=== PATIENT | female | born 1995 | race American Indian/Alaskan Native ===

== ENCOUNTER 2018-08-06 18:43 | Emergency (ER) | payer SELFPAY ==
[2018-08-06 18:50] VITALS: BP 119/60
--- NOTE | 2018-08-06 18:51 | Emergency Department Report ---
Blank Doc - Documentation Documentation: This is a 22-year-old female that presents with sore throat, frontal headache, and body aches. Deneis any cough. This initial assessment/diagnostic orders/clinical plan/treatment(s) is/are subject to change based on patient's health status, clinical progression and re-assessment by fellow clinical providers in the ED. Further treatment and workup at subsequent clinical providers discretion. Patient/guardians urged not to elope from the ED as their condition may be serious if not clinically assessed and managed. Initial orders include: 1- Patient sent to [facility] for further evaluation and treatment 2- strep swab
--- NOTE | 2018-08-06 20:58 | Emergency Department Report ---
- General Chief Complaint: Upper Respiratory Infection Stated Complaint: SORE THROAT/BODY ACHES/HEADACHE Time Seen by Provider: 08/06/18 18:50 Source: patient Mode of arrival: Ambulatory Limitations: No Limitations - History of Present Illness Initial Comments: Pt is a 22 yo female who presents to the ED with c/o URI sx that began this morning. She has associated sore throat, VELASQUEZ, and body aches. She denies any fever, cough, ear ache, rhinorrhea, or congestion. She denies any PMHx. she has not taken anything to alleviate her symptoms. she denies any allergies to medications. - Related Data Previous Rx's Medication Instructions Recorded Last Taken Type Ondansetron [Zofran Odt] 4 mg PO Q8HR #12 tab.rapdis 07/25/18 Unknown Rx Fluticasone [Flonase] 1 spray NS QDAY #1 bottle 08/06/18 Unknown Rx Loratadine [Claritin] 10 mg PO DAILY #30 tablet 08/06/18 Unknown Rx Allergies Allergy/AdvReac Type Severity Reaction Status Date / Time isa Allergy Rash Uncoded 08/06/18 18:45 ED Review of Systems ROS: Stated complaint: SORE THROAT/BODY ACHES/HEADACHE Other details as noted in HPI Comment: All other systems reviewed and negative ED Past Medical Hx - Past Medical History Previous Medical History?: No - Surgical History Past Surgical History?: No - Social History Smoking Status: Never Smoker Substance Use Type: None - Medications Home Medications: Home Medications Medication Instructions Recorded Confirmed Last Taken Type Ondansetron [Zofran Odt] 4 mg PO Q8HR #12 tab.rapdis 07/25/18 Unknown Rx Fluticasone [Flonase] 1 spray NS QDAY #1 bottle 08/06/18 Unknown Rx Loratadine [Claritin] 10 mg PO DAILY #30 tablet 08/06/18 Unknown Rx ED Physical Exam - General Limitations: No Limitations General appearance: alert, in no apparent distress - Head Head exam: Present: atraumatic, normocephalic - Eye Eye exam: Present: normal appearance, PERRL. Absent: scleral icterus, conjunctival injection, nystagmus, periorbital swelling, periorbital tenderness - ENT ENT exam: Present: normal orophraynx, mucous membranes moist, TM's normal bilaterally, normal external ear exam, other (pale boggy turbinates bilaterally with nasal mucus discharge, no sinus TTP of the bilateral frontal or maxillary sinuses) - Respiratory Respiratory exam: Present: normal lung sounds bilaterally. Absent: respiratory distress, wheezes, rales, rhonchi, stridor, chest wall tenderness, accessory muscle use, decreased breath sounds, prolonged expiratory - Cardiovascular Cardiovascular Exam: Present: regular rate, normal rhythm, normal heart sounds. Absent: systolic murmur, diastolic murmur, rubs, gallop - Neurological Exam Neurological exam: Present: alert, oriented X3 - Psychiatric Psychiatric exam: Present: normal affect, normal mood - Skin Skin exam: Present: warm, dry, intact ED Course Vital Signs 08/06/18 18:46 Temperature 98.8 F Pulse Rate 74 Respiratory 16 Rate Blood Pressure 119/60 O2 Sat by Pulse 99 Oximetry ED Medical Decision Making - Lab Data Lab Results 08/06/18 Range/Units 18:37 Group A Strep Rapid Negative (Negative) Vital Signs 08/06/18 18:46 Temperature 98.8 F Pulse Rate 74 Respiratory 16 Rate Blood Pressure 119/60 O2 Sat by Pulse 99 Oximetry - Medical Decision Making vitals are normal. rapid strep negative. normal oropharynx on exam. examination consistent with seasonal allergies and allergic rhinitis. no fever, no sinus TTP. will give pt allergy medication and flonase. advised to take as prescribed. continue drinking plenty of fluids. follow up with primary care doctor in the next 2-3 days for reevaluation. return to the emergency room for any new or worsening symptoms. - Differential Diagnosis uri, strep, seasonal allergies Critical care attestation.: If time is entered above; I have spent that time in minutes in the direct care of this critically ill patient, excluding procedure time. ED Disposition Clinical Impression: Seasonal allergies Allergic rhinitis Qualifiers: Allergic rhinitis trigger: unspecified Allergic rhinitis seasonality: seasonal Qualified Code(s): J30.2 - Other seasonal allergic rhinitis Disposition: - TO HOME OR SELFCARE Is pt being admited?: No Does the pt Need Aspirin: No Condition: Stable Instructions: Allergic Rhinitis (ED), Allergies (ED) Additional Instructions: Please take all medication as prescribed. continue drinking plenty of fluids. follow up with primary care doctor in the next 2-3 days for reevaluation. return to the emergency room for any new or worsening symptoms. Prescriptions: Loratadine [Claritin] 10 mg PO DAILY #30 tablet Fluticasone [Flonase] 1 spray NS QDAY #1 bottle Referrals: KURT CHAVIS MD [Primary Care Provider] - 2-3 Days Time of Disposition: 20:59 Print Language: ERITREAN
== END 2018-08-06 21:05 | disposition home or self-care (01) ==
LOC: ED 18:43
DX: J30.9 Allergic rhinitis, unspecified (principal); J30.2 Other seasonal allergic rhinitis; Z91.048 Other nonmedicinal substance allergy status
CPT/HCPCS: 87116; 87430

== ENCOUNTER 2018-11-20 10:28 | Emergency (ER) | payer SELFPAY ==
[2018-11-20 11:09] LABS: Basophils # (Auto) 0.1 K/mm3 (0.0-0.1); Basophils % (Auto) 0.6 % (0.0-1.8); Eosinophils # (Auto) 0.1 K/mm3 (0.0-0.4); Eosinophils % (Auto) 1.4 % (0.0-4.3); Hematocrit 33.6 % (30.3-42.9); Hemoglobin 10.5 gm/dl (10.1-14.3); Lymphocytes # (Auto) 1.7 K/mm3 (1.2-5.4); Lymphocytes % (Auto) 18.3 % (13.4-35.0); Mean Corpuscular HGB Conc 31 % (30-34); Mean Corpuscular Volume 77 fl (79-97); Monocytes # (Auto) 0.8 K/mm3 (0.0-0.8); Monocytes % (Auto) 8.2 % (0.0-7.3); Platelet Count 251 K/mm3 (140-440); Red Blood Count 4.39 M/mm3 (3.65-5.03); Red Cell Distribution Width 14.1 % (13.2-15.2)
[2018-11-20 11:30] LABS: Alanine Aminotransferase 6 units/L (7-56); Albumin 3.6 g/dL (3.9-5); BUN/Creatinine Ratio 15; Blood Urea Nitrogen 9 mg/dL (7-17); Calcium 9.1 mg/dL (8.4-10.2); Hemolysis Index 3
[2018-11-20 14:24] LABS: Bilirubin,Urine NEG (Negative); Blood,Urine NEG (Negative); Color,Urine Yellow (Yellow); Protein,Urine <15 mg/dL mg/dL (Negative); Urobilinogen,Urine < 2.0 mg/dL (<2.0); WBC,Urine < 1.0 /HPF (0.0-6.0)
--- NOTE | 2018-11-20 15:28 | Emergency Department Report ---
ED General Adult HPI - General Chief complaint: Abdominal Pain Stated complaint: STOMACH PAIN Time Seen by Provider: 11/20/18 14:11 Source: patient Mode of arrival: Ambulatory Limitations: No Limitations - History of Present Illness Initial comments: Plan 3-year-old female just was department complaining of in 2 weeks late on her period and having some mild nausea. She denies any abdominal pain. Reports no fever, chills, sweats. No chest pain or palpitations no hematuria, dysuria, no flank pain. -: Gradual Radiation: non-radiation Quality: aching, dull Consistency: constant Improves with: none Worsens with: none Associated Symptoms: denies other symptoms. denies: confusion, cough, loss of appetite, malaise, shortness of breath, syncope Treatments Prior to Arrival: none - Related Data Previous Rx's Medication Instructions Recorded Last Taken Type Ondansetron [Zofran Odt] 4 mg PO Q8HR #12 tab.rapdis 07/25/18 Unknown Rx Fluticasone [Flonase] 1 spray NS QDAY #1 bottle 08/06/18 Unknown Rx Loratadine [Claritin] 10 mg PO DAILY #30 tablet 08/06/18 Unknown Rx Allergies Allergy/AdvReac Type Severity Reaction Status Date / Time isa Allergy Rash Uncoded 08/06/18 18:45 ED Review of Systems ROS: Stated complaint: STOMACH PAIN Other details as noted in HPI Comment: All other systems reviewed and negative ED Past Medical Hx - Past Medical History Previous Medical History?: No - Surgical History Past Surgical History?: No - Social History Smoking Status: Never Smoker Substance Use Type: Marijuana - Medications Home Medications: Home Medications Medication Instructions Recorded Confirmed Last Taken Type Ondansetron [Zofran Odt] 4 mg PO Q8HR #12 tab.rapdis 07/25/18 Unknown Rx Fluticasone [Flonase] 1 spray NS QDAY #1 bottle 08/06/18 Unknown Rx Loratadine [Claritin] 10 mg PO DAILY #30 tablet 08/06/18 Unknown Rx ED Physical Exam - General Limitations: No Limitations General appearance: alert, in no apparent distress - Head Head exam: Present: atraumatic, normocephalic - Eye Eye exam: Present: normal appearance - ENT ENT exam: Present: mucous membranes moist - Neck Neck exam: Present: normal inspection - Respiratory Respiratory exam: Present: normal lung sounds bilaterally. Absent: respiratory distress - Cardiovascular Cardiovascular Exam: Present: regular rate, normal rhythm. Absent: systolic murmur, diastolic murmur, rubs, gallop - GI/Abdominal GI/Abdominal exam: Present: soft, normal bowel sounds - Extremities Exam Extremities exam: Present: normal inspection - Back Exam Back exam: Present: normal inspection - Neurological Exam Neurological exam: Present: alert, oriented X3 - Psychiatric Psychiatric exam: Present: normal affect, normal mood - Skin Skin exam: Present: warm, dry, intact, normal color. Absent: rash ED Course Vital Signs 11/20/18 10:38 Temperature 98.6 F Pulse Rate 63 Respiratory 18 Rate Blood Pressure 105/41 [Left] O2 Sat by Pulse 99 Oximetry ED Medical Decision Making - Lab Data Result diagrams: 11/20/18 10:52 11/20/18 10:52 - Medical Decision Making 23-year-old female with no symptoms with the exception of nausea presenting expecting possible with a negative hCG, quantitative plan is for to follow up with [facility] for further evaluation. His last use 2-12 one half weeks late on her period. Critical care attestation.: If time is entered above; I have spent that time in minutes in the direct care of this critically ill patient, excluding procedure time. ED Disposition Clinical Impression: Negative test Disposition: - TO HOME OR SELFCARE Is pt being admited?: No Does the pt Need Aspirin: No Condition: Stable Referrals: [facility] [Provider Group] - 3-5 Days PRIMARY CARE, [Primary Care Provider] - 3-5 Days
[2018-11-20 16:17] VITALS: BP 110/50
== END 2018-11-20 16:16 | disposition home or self-care (01) ==
LOC: ED 10:28
DX: R10.9 Unspecified abdominal pain (principal); R11.0 Nausea; F12.10 Cannabis abuse, uncomplicated; Z79.899 Other long term (current) drug therapy; Z91.048 Other nonmedicinal substance allergy status; Z32.02 Encounter for pregnancy test, result negative
CPT/HCPCS: 36415; 80053; 81001; 84702; 85025